=== PATIENT | male | born 1995 | race Asian ===

== ENCOUNTER 2017-02-09 17:09 | Emergency (ER) | payer MEDICAID ==
[2017-02-09 17:16] VITALS: BP 129/64; PULSE 98; RESP 18; TEMP 97.9; O2SAT 98
--- NOTE | 2017-02-09 17:21 | EDPHY ---
H & P Time Seen by Provider: 02/09/17 17:13 HPI/ROS: CHIEF COMPLAINT: Suspected alcohol intoxication HISTORY OF PRESENT ILLNESS: 21-year-old male arrives via ambulance on an [facility] hold after he was found ambulating with an unsteady gait and then fell asleep on the sidewalk in front of a local business and EMS was called. No trauma or fall. He admits to "drugging and boozing" today. He has no complaints of pain or discomfort. Denies suicidal homicidal ideation PRIMARY CARE PROVIDER: REVIEW OF SYSTEMS: A ten point review of systems was performed and is negative with the exception of the items mentioned in the HPI PAST MEDICAL & SURGICAL HISTORY: No pertinent medical or surgical history SOCIAL HISTORY: admits to positive polysubstance abuse "drugging and boozing" today PHYSICAL EXAM (Prior to examination, patient consented to physical exam, hands were washed and my usual and customary physical exam procedures followed) 1) GENERAL: Well-developed, is cursing, yelling at staff, smells of alcohol 2) HEAD: Normocephalic, atraumatic 3) HEENT: Pupils equal, round, reactive to light bilaterally. Sclera anicteric. 4) NECK: Full range of motion, no meningeal signs. 5) LUNGS: Clear auscultation bilaterally, no wheezes, no rhonchi, no retractions. 6) HEART: Regular rate and rhythm, no murmur, no heave, no gallop. 7) ABDOMEN: No guarding, no rebound, no focal tenderness, 8) MUSCULOSKELETAL: No peripheral edema or discoloration.] 9) BACK: no visual or palpable abnormality. 10) SKIN: No rash, no petechiae. 11) Psychiatric: Patient is oriented X 3, he is intermittently agitated. DIFFERENTIAL DIAGNOSIS: In no particular orderincluding but not limited to hypoglycemia, infectious process, electrolyte abnormality, head injury and intoxicants. Constitutional: Initial Vital Signs Temperature (C) 36.6 C 02/09/17 17:15 Heart Rate 98 02/09/17 17:15 Respiratory Rate 18 02/09/17 17:15 Blood Pressure 129/64 H 02/09/17 17:15 O2 Sat (%) 98 02/09/17 17:15 O2 Delivery Mode Room Air MDM/Departure - Depart Disposition: Home, Routine, Self-Care Clinical Impression: Alcoholic intoxication Qualifiers: Complication of substance-induced condition: uncomplicated Qualified Code(s): F10.120 - Alcohol abuse with intoxication, uncomplicated Condition: Good Instructions: Alcohol Intoxication (ED) Additional Instructions: Please exercise moderation with alcohol use in the future Referrals: [facility] [Outside] - 1 day without fail
[2017-02-09 18:13] LABS: ETHANOL SERUM 346 mg/dL (0-10)
== END 2017-02-09 18:15 | disposition home or self-care (01) ==
DX: F10.120 Alcohol abuse with intoxication, uncomplicated (principal)
CPT/HCPCS: G0480

== ENCOUNTER 2017-02-10 13:47 | Emergency (ER) | payer MEDICAID ==
[2017-02-10 13:54] VITALS: BP 155/98; PULSE 106; RESP 18; TEMP 98.1; O2SAT 96
--- NOTE | 2017-02-10 14:17 | EDPHY ---
H & P Time Seen by Provider: 02/10/17 14:11 HPI/ROS: CHIEF COMPLAINT: Knee pain HISTORY OF PRESENT ILLNESS: This is a 21-year-old male presenting to the emergency department complaining of right knee pain. Patient states he was released from detox today can't remember how he fell yesterday prior to going to detox. Patient states he was on a bus from [place] to [place], was found sitting on a bench by [facility] [employer] was taken to detox. Patient complaining of right knee pain with swelling increased pain with ambulation. Denies any other complaints. Patient does report he usually drinks a 5th of vodka daily daily marijuana, last drink was after being released from detox. REVIEW OF SYSTEMS: Constitutional: No fever, no chills. Eyes: No discharge. ENT: No sore throat. Cardiovascular: No chest pain, no palpitations. Respiratory: No cough, no shortness of breath. Gastrointestinal: No abdominal pain, no vomiting. Genitourinary: No hematuria. Musculoskeletal: No back pain. Right knee pain Skin: No rashes. Neurological: No headache. Smoking Status: Never smoked Physical Exam: General Appearance: Alert, no distress. Eyes: Pupils equal and round no pallor or injection. ENT, Mouth: Mucous membranes moist. Respiratory: There are no retractions, lungs are clear to auscultation. Cardiovascular: Regular rate and rhythm. Gastrointestinal: Abdomen is soft and nontender, no masses, bowel sounds normal. Neurological: No focal deficits. Non tremulous no fasciculations Skin: Warm and dry, no rashes. Musculoskeletal: Neck is supple nontender. Right knee swelling tender on palpation no obvious deformity Extremities: symmetrical, decreased range of motion with right knee most likely due to pain. Moving all other extremities Psychiatric: Patient is oriented X 3, there is no agitation. Constitutional: Initial Vital Signs Temperature (C) 36.7 C 02/10/17 13:52 Heart Rate 106 H 02/10/17 13:52 Respiratory Rate 18 02/10/17 13:52 Blood Pressure 155/98 H 02/10/17 13:52 O2 Sat (%) 96 02/10/17 13:52 O2 Delivery Mode Room Air Allergies/Adverse Reactions: No Known Allergies Allergy (Unverified 02/10/17 13:52) Home Medications: Medication Instructions Recorded NK [No Known Home Meds] 02/10/17 Medical Decision Making - Diagnostics Imaging Results: Imaging Impressions Knee X-Ray 02/10/17 14:17 Impression: Mild early degenerative change medial compartment right knee. Moderate suprapatellar joint effusion. ED Course/Re-evaluation: Discussed ED plan of care: X-ray of right knee 1450: X-ray results negative for any acute fractures, and moderate joint effusion. Anup wrap placed ibuprofen given 1455: I also spoke with the case management here in the ED, she is going to give patient resources for homeless shelters. Patient was also given resources for decreasing alcohol intake intake, crisis Centers 1500: Discharge home---> stable, discussed discharge instructions Differential Diagnosis: Other differential diagnosis considered but not limited to patellar dislocation , patellar fracture, and ligamentous injury - Data Points Medications Given: Discontinued Medications Ibuprofen (Motrin) 600 mg PO ONCE ONE Stop: 02/10/17 14:58 Last Admin: 02/10/17 15:07 Dose: 600 mg Departure - Departure Disposition: Home, Routine, Self-Care Clinical Impression: Joint effusion of knee Condition: Good Instructions: Swollen Knee Joint (ED) Additional Instructions: Discussed discharge instructions the patient 1. Decrease prolonged pressure on her right lower extremity 2. Elevate when possible, wear Anup wrap to help with compression to knee 3. Ibuprofen 600 mg every 6-8 hours 4. transportation operations manager has also given you some information on homeless shelters. you have been given information on [facility] follow up with them Referrals: NONE *PRIMARY CARE P,. [Primary Care Provider] - As per Instructions [facility],. [Clinic] - As per Instructions
[2017-02-10] MEDS ORDERED: IBUPROFEN 600 MG TAB PO ONE (14:57)
== END 2017-02-10 15:35 | disposition home or self-care (01) ==
DX: M25.461 Effusion, right knee (principal)
CPT/HCPCS: G0398